=== PATIENT | female | born 1980 | race American Indian/Alaskan Native ===

== ENCOUNTER 2017-03-09 09:53 | Day surgery (SDC) | payer BC, OTHER ==
[2017-03-05 10:23] VITALS: BMI 23.4
[2017-03-09 10:22] VITALS: RESP 18; O2SAT 100
[2017-03-09] MEDS ORDERED: Rocuronium 10 mg/ml (5 ml) ONE (12:02)
[2017-03-09] MEDS ORDERED: ePHEDrine 50 mg/ml Inj ONE (12:02)
[2017-03-09] MEDS ORDERED: Propofol 10 mg/ml Inj (20 ML) ONE (12:02)
[2017-03-09] MEDS ORDERED: Midazolam 2 MG/2 ML VIAL ONE (12:02)
[2017-03-09 12:06] LABS: HEMATOCRIT 42.7 % (34.0-47.0); MEAN CELL VOLUME 94.6 fl (81.0-99.0); MEAN CORPUSCULAR HEMOGLOBIN 31.1 pg (27.0-31.0); MEAN CORPUSCULAR HGB CONC 32.9 g/dL (33.0-37.0); RED CELL DISTRIBUTION WIDTH 14.7 % (11.5-14.5)
[2017-03-09] MEDS ORDERED: Lactated Ringer's 1,000 ML IV ONE ×2 (12:06→14:12)
[2017-03-09] MEDS ORDERED: Dexamethasone 4 mg/1 ml ONE (12:48)
[2017-03-09] MEDS ORDERED: Desflurane Inhalation Anesthetic Liq (240 ml) ONE (12:55)
[2017-03-09] MEDS ORDERED: Neostigmine Methylsulfate 3mg/3ml Syringe IV ONE (13:25)
[2017-03-09] MEDS ORDERED: HYDROmorphone 0.5 mg/0.5 ml ISec IVP PRN (14:04)
[2017-03-09] MEDS ORDERED: Oxycodone/Acetaminophen 5/325 mg Tab PO PRN (14:20)
[2017-03-09 15:56] VITALS: BP 104/68; PULSE 91; TEMP 97.4
--- NOTE | 2017-03-09 18:51 | OP ---
PROCEDURE DATE: 03/09/2017 PREOPERATIVE DIAGNOSIS: Pelvic pain. POSTOPERATIVE DIAGNOSES: Pelvic pain, plus pelvic adhesions. FINDINGS: Massive pelvic adhesions from the omentum to anterior wall in the previous incision site, some uterine fibroids, and apparently ruptured cyst. SURGEON: Mingo Garibay MD SALES AND MARKETING ASSISTANT: Dr. Puentes. PEDIATRIC CLINICAL DIETICIAN: Padmini Enrique PA-C. PROCEDURE: Diagnostic laparoscopy, lysis of adhesions and removal of fluid from the cul-de-sac. DESCRIPTION OF PROCEDURE: With the patient in dorsal lithotomy position under general anesthesia, th e patient was prepped and draped in usual sterile manner. Rangel was used to empty the bladder after which a weighted speculum was placed in the posterior vagina. Cervix was grasped and dilated and a H JUWAN uterine manipulator put into place. After this was done, we moved to the abdomen. A Veress need le was introduced into the abdomen inflating it to about 4 liters of CO2. After this was done, a sma ll incision was made below the umbilicus about 1 cm #10 trocar was introduced leaving the sleeve in p lace and trocar ____. Laparoscope with camera attached was then introduced into the abdominopelvic c avity. Following this, the above findings were visualized. Second puncture was made through the rig ht side of the midline ____ 5 trocar. After this was done, the adhesions were identified and the Lig aSure was used to incise the adhesions. After this was done, the pelvic cavity was irrigated until c lean. Removing all fluid from the uterus and hemostasis was maintained. Instruments were then remov ed from the abdominopelvic cavity and incisions were closed with 0 Vicryl and Dermabond. The ____ do ne removed from the pelvic cavity and the cervix. Blood loss was minimal. The patient tolerated the procedure well. Dr. Puentes was there for the whole duration of the procedure and helped to prepare for the surgery. Also, he helped on closure and he was there for the last suture. The patient tole rated the procedure well. All in satisfactory condition on the way to recovery room. Blood loss was minimal. Mingo Garibay MD cc: 22 TT: 03/09/2017 18:50:47 jn
== END 2017-03-09 16:35 | disposition home or self-care (01) ==
LOC: H.OPSURG 09:53
PROVIDERS: ATTEND Specialist
DX: N83.201 Unspecified ovarian cyst, right side (principal); D64.9 Anemia, unspecified; N73.6 Female pelvic peritoneal adhesions (postinfective); R10.2 Pelvic and perineal pain
CPT/HCPCS: 36415; 49322; 49329; 85027; J0694; J1100; J1885; J2001; J2250; J2704; J2710; J3010; J7030; J7120